=== PATIENT | male | born 1950 | race Caucasian/White ===

== ENCOUNTER 2021-02-27 02:46 | Inpatient (IN) | payer MEDICARE, OTHER ==
[2021-02-27 03:22] LABS: #Basophils 0.1 thou/uL (0.0-0.2); #Eosinphils 0.2 thou/uL (0.0-0.7); #Lymphocytes 2.8 thou/uL (1.20-3.40); #Monocytes 0.6 thou/uL (0.11-0.59); #Neutrophils 2.6 thou/uL (1.40-6.50); %Basophils 1.6 % (0.0-1.0); %Eosinophils 2.5 % (0.0-10.0); %Lymphocytes 45.1 % (21.0-51.0); %Monocytes 9.8 % (0.0-10.0); Hemoglobin 14.3 g/dL (14.0-18.0); Mean Corpuscular HGB CONC 33.6 g/dL (32.0-36.0); Mean Corpuscular Hemoglobin 31.2 pg (27.0-31.0); Mean Platelet Volume 7.9 fL (7.4-10.4); Platelet Count 190 thou/uL (130-400); RBC Distribution Width 12.9 % (11.5-14.5); Red Blood Cell (RBC) Count 4.57 mill/uL (4.70-6.10); White Blood Cell (WBC) Count 6.3 thou/uL (4.8-10.8)
[2021-02-27 03:44] LABS: ALT (SGPT) 12 U/L (8-55); AST (SGOT) 25 U/L (5-34); Albumin 3.9 g/dL (3.4-4.8); Alkaline Phosphatase 44 U/L (40-110); Anion Gap 13 mmol/L (10-20); BUN (Urea Nitrogen) 19 mg/dL (8.4-25.7); Bilirubin, Total 0.4 mg/dL (0.2-1.2); CK (CPK) 165 U/L (30-200); Calc. Creatinine Clearance 0 mL/min (70-130); Calcium 9.3 mg/dL (7.8-10.44); Carbon Dioxide 22 mmol/L (23-31); Chloride 108 mmol/L (98-107); Globulin 2.8 g/dL (2.4-3.5); Glucose 121 mg/dL (83-110); Potassium 4.3 mmol/L (3.5-5.1); Protein, Total 6.7 g/dL (5.8-8.1); Sodium 139 mmol/L (136-145)
[2021-02-27 06:51] LABS: SARS-CoV-2 NAA Rapid Test Not Detected (NotDetected)
[2021-02-27] MEDS ORDERED: Acetaminophen 325 MG TAB PO PRN (08:12)
[2021-02-27] MEDS ORDERED: Dextrose 5% in Water 1,000 ML IV PRN (08:12)
[2021-02-27] MEDS ORDERED: HumaLOG 300 UNITS/3 ML VIAL SC PRN (08:12)
[2021-02-27] MEDS ORDERED: Ondansetron ODT 4 MG TAB PO PRN (08:12)
[2021-02-27] MEDS ORDERED: Dextrose 50% Abboject 50 ML SYRINGE SLOW IVP PRN (08:12)
[2021-02-27] MEDS ORDERED: Communication Order-Pharmacy FS ONE (08:12)
[2021-02-27 08:44] LABS: Hemoglobin 13.5 g/dL (14.0-18.0); Platelet Count 164 thou/uL (130-400)
[2021-02-27] MEDS ORDERED: Enoxaparin Sodium 80 MG/0.8 ML SYRINGE SC SCH (09:00)
[2021-02-27 09:04] LABS: Troponin I 0.012 ng/mL (< 0.028)
[2021-02-27 12:59] LABS: Troponin I Less than 0.010 ng/mL (< 0.028)
[2021-02-27] MEDS ORDERED: Diltiazem 125 MG in Sodium Chloride 0.9% 100 ML IVPB SCH ×2 (17:15→17:30)
[2021-02-27] MEDS ORDERED: Diltiazem 125 MG/25 ML ONE ×2 (17:31→17:57)
[2021-02-27 17:46] VITALS: BMI 32.5
[2021-02-27] MEDS ORDERED: Digoxin 0.5 MG/2 ML AMP SLOW IVP SCH ×3 (18:30→21:00)
[2021-02-27] MEDS: Apixaban 5 MG TAB PO SCH (21:44)
[2021-02-27] MEDS ORDERED: Tamsulosin HCl 0.4 MG CAP PO SCH (23:30)
[2021-02-28 05:19] LABS: Anion Gap 11 mmol/L (10-20); BUN (Urea Nitrogen) 14 mg/dL (8.4-25.7); Calc. Creatinine Clearance 114 mL/min (70-130); Carbon Dioxide 25 mmol/L (23-31); Cardiac Risk 3.5 (Less than 4.5); Chloride 108 mmol/L (98-107); Cholesterol 114 mg/dl (< 200 Desired); Glucose 108 mg/dL (83-110); HDL Cholesterol 33 mg/dL (>60 Neg Risk); LDL Cholesterol, Calculated 49 mg/dL; Potassium 3.9 mmol/L (3.5-5.1); Sodium 140 mmol/L (136-145); Triglycerides 158 mg/dL (Less than 150)
[2021-02-28 06:34] LABS: Band 3 % (5-11); Eosinophils 1 % (0-10); Hemoglobin 13.8 g/dL (14.0-18.0); Lymphocytes 42 % (21-51); MDiff Complete? YES; Mean Corpuscular HGB CONC 32.9 g/dL (32.0-36.0); Mean Corpuscular Volume 91.3 fL (78.0-98.0); Mean Platelet Volume 8.7 fL (7.4-10.4); Monocytes 10 % (0-10); Neutrophil 44 % (42-75); Platelet Count 174 thou/uL (130-400); RBC Distribution Width 12.6 % (11.5-14.5); RBC Morphology Normal; Red Blood Cell (RBC) Count 4.59 mill/uL (4.70-6.10); White Blood Cell (WBC) Count 6.3 thou/uL (4.8-10.8)
[2021-02-28] MEDS ORDERED: Aspirin 81 mg Enteric Coated Tablet PO SCH (09:00)
[2021-02-28] MEDS: diphenhydrAMINE 50 MG CAP PO SCH ×2 (09:27→20:36)
[2021-02-28] MEDS: Apixaban 5 MG TAB PO SCH ×2 (09:28→20:35)
[2021-02-28] MEDS: Cholecalciferol 1,000 UNITS (25 MCG) TAB PO SCH (09:28)
[2021-02-28] MEDS: Tamsulosin HCl 0.4 MG CAP PO SCH ×2 (09:28→20:36)
[2021-02-28] MEDS: Carvedilol 25 MG TAB PO SCH ×2 (09:28→20:36)
[2021-02-28] MEDS: Empagliflozin 10 MG TAB PO SCH (10:05)
[2021-02-28] MEDS: Fenofibrate Nanocrystallized 145 MG TAB PO SCH (10:05)
[2021-02-28] MEDS: HumaLOG 300 UNITS/3 ML VIAL SC PRN (12:22)
[2021-02-28] MEDS ORDERED: Albuterol Sulfate 1.25 MG/3 ML NEB NEB PRN (13:52)
[2021-02-28] MEDS ORDERED: Albuterol Sulfate 2.5 mg/3 ml Neb NEB SCH (14:00)
[2021-02-28] MEDS ORDERED: Fluticasone Propionate Nasal Spray 16 gm Bottle NASAL SCH (14:00)
[2021-02-28] MEDS ORDERED: Furosemide 40 MG TAB PO SCH (16:00)
[2021-02-28] MEDS ORDERED: Furosemide 20 MG TAB PO SCH (18:00)
[2021-02-28] MEDS: Pioglitazone HCl 15 MG TAB PO SCH (20:36)
[2021-02-28] MEDS: Rosuvastatin 10 MG TAB PO SCH (20:36)
[2021-02-28] MEDS: Ramipril 5 MG CAP PO SCH (20:36)
[2021-03-01] MEDS: guaiFENesin 200 MG TAB PO PRN ×2 (03:36→20:09)
[2021-03-01 05:30] LABS: #Eosinphils 0.1 thou/uL (0.0-0.7); #Lymphocytes 2.3 thou/uL (1.20-3.40); #Monocytes 1.1 thou/uL (0.11-0.59); #Neutrophils 5.1 thou/uL (1.40-6.50); %Basophils 0.5 % (0.0-1.0); %Eosinophils 1.6 % (0.0-10.0); %Lymphocytes 26.3 % (21.0-51.0); %Neutrophils 58.5 % (42.0-75.0); Hemoglobin 14.5 g/dL (14.0-18.0); Mean Corpuscular HGB CONC 33.5 g/dL (32.0-36.0); Mean Corpuscular Hemoglobin 30.8 pg (27.0-31.0); Mean Corpuscular Volume 92.1 fL (78.0-98.0); Mean Platelet Volume 8.3 fL (7.4-10.4); Platelet Count 191 thou/uL (130-400); RBC Distribution Width 12.8 % (11.5-14.5); White Blood Cell (WBC) Count 8.7 thou/uL (4.8-10.8)
[2021-03-01 05:53] LABS: Anion Gap 14 mmol/L (10-20); BUN (Urea Nitrogen) 16 mg/dL (8.4-25.7); Calc. Creatinine Clearance 89 mL/min (70-130); Calcium 9.3 mg/dL (7.8-10.44); Carbon Dioxide 24 mmol/L (23-31); Chloride 105 mmol/L (98-107); Glucose 143 mg/dL (83-110); Potassium 3.7 mmol/L (3.5-5.1); Sodium 139 mmol/L (136-145)
[2021-03-01] MEDS ORDERED: Lidocaine 1% PF 5 ML VIAL ONE (10:59)
[2021-03-01] MEDS ORDERED: PROPOFOL 200 MG/20 ML VIAL ONE (10:59)
[2021-03-01] MEDS ORDERED: Flecainide 50 MG TAB PO SCH (12:15)
[2021-03-01] MEDS: Fluticasone Propionate Nasal Spray 16 gm Bottle NASAL SCH (12:38)
[2021-03-01] MEDS: Tamsulosin HCl 0.4 MG CAP PO SCH ×2 (12:39→20:09)
[2021-03-01] MEDS: Carvedilol 25 MG TAB PO SCH ×2 (12:39→20:08)
[2021-03-01] MEDS: Cholecalciferol 1,000 UNITS (25 MCG) TAB PO SCH (12:39)
[2021-03-01] MEDS: diphenhydrAMINE 50 MG CAP PO SCH ×2 (12:40→20:08)
[2021-03-01] MEDS: Fenofibrate Nanocrystallized 145 MG TAB PO SCH (12:40)
[2021-03-01] MEDS: Empagliflozin 10 MG TAB PO SCH (12:41)
[2021-03-01] MEDS: Apixaban 5 MG TAB PO SCH ×2 (12:53→20:08)
[2021-03-01] MEDS ORDERED: glipiZIDE 10 MG TAB PO SCH (18:15)
[2021-03-01] MEDS: Rosuvastatin 10 MG TAB PO SCH (20:08)
[2021-03-01] MEDS: Ramipril 5 MG CAP PO SCH (20:09)
[2021-03-01] MEDS: Flecainide 50 MG TAB PO SCH (20:09)
[2021-03-01] MEDS: Pioglitazone HCl 15 MG TAB PO SCH (20:09)
[2021-03-02] MEDS: guaiFENesin 200 MG TAB PO PRN (05:00)
[2021-03-02 05:13] LABS: Hemoglobin 13.8 g/dL (14.0-18.0); Platelet Count 196 thou/uL (130-400)
[2021-03-02 05:29] LABS: Anion Gap 15 mmol/L (10-20); BUN (Urea Nitrogen) 21 mg/dL (8.4-25.7); Calc. Creatinine Clearance 89 mL/min (70-130); Calcium 9.4 mg/dL (7.8-10.44); Carbon Dioxide 21 mmol/L (23-31); Chloride 107 mmol/L (98-107); Glucose 154 mg/dL (83-110); Magnesium 1.6 mg/dL (1.6-2.6); Potassium 4.1 mmol/L (3.5-5.1); Sodium 139 mmol/L (136-145)
[2021-03-02] MEDS ORDERED: glipiZIDE 10 MG TAB PO SCH (07:30)
[2021-03-02] MEDS: Carvedilol 25 MG TAB PO SCH (08:30)
[2021-03-02] MEDS: Apixaban 5 MG TAB PO SCH (08:30)
[2021-03-02] MEDS: Flecainide 50 MG TAB PO SCH (08:31)
[2021-03-02] MEDS: diphenhydrAMINE 50 MG CAP PO SCH (08:31)
[2021-03-02] MEDS: Tamsulosin HCl 0.4 MG CAP PO SCH (08:31)
[2021-03-02] MEDS: Fenofibrate Nanocrystallized 145 MG TAB PO SCH (08:31)
[2021-03-02] MEDS: Cholecalciferol 1,000 UNITS (25 MCG) TAB PO SCH (08:31)
[2021-03-02] MEDS: Empagliflozin 10 MG TAB PO SCH (08:32)
[2021-03-02] MEDS: Fluticasone Propionate Nasal Spray 16 gm Bottle NASAL SCH (08:32)
[2021-03-02] MEDS ORDERED: Carvedilol 25 MG TAB PO SCH ×2 (09:00→15:00)
[2021-03-02] MEDS ORDERED: Magnesium Sulfate 2 GM in Sodium Chloride 0.9% 100 ML IVPB SCH (10:45)
[2021-03-02] MEDS ORDERED: Magnesium 2 GM/50 ML 2 GM in Premix Bag 1 BAG IVPB SCH ×2 (10:45→11:00)
[2021-03-02] MEDS: HumaLOG 300 UNITS/3 ML VIAL SC PRN (11:31)
[2021-03-02 12:03] VITALS: BP 101/51; TEMP 97.7
== END 2021-03-02 13:06 | disposition home or self-care (01) | DRG 308 ==
LOC: ERS 02:46 → ERHOLD 05:29 → 2NO 21:53
PROVIDERS: ADMIT Internal Medicine; ATTEND Internal Medicine
PROC: 5A2204Z Restoration of Cardiac Rhythm, Single (ICD-10-PCS; principal; 2021-03-01)
PROC: B24BZZ4 Ultrasonography of Heart with Aorta, Transesophageal (ICD-10-PCS; 2021-03-01)
DX: I48.0 Paroxysmal atrial fibrillation (principal); J96.00 Acute respiratory failure, unspecified whether with hypoxia or hypercapnia; I50.33 Acute on chronic diastolic (congestive) heart failure; Z20.822 Contact with and (suspected) exposure to COVID-19; E11.9 Type 2 diabetes mellitus without complications; E66.9 Obesity, unspecified; E78.00 Pure hypercholesterolemia, unspecified; I47.2 Ventricular tachycardia; I48.92 Unspecified atrial flutter; I11.0 Hypertensive heart disease with heart failure; Z96.641 Presence of right artificial hip joint; Z79.899 Other long term (current) drug therapy; Z79.82 Long term (current) use of aspirin; Z79.84 Long term (current) use of oral hypoglycemic drugs; Z88.1 Allergy status to other antibiotic agents; Z68.32 Body mass index [BMI] 32.0-32.9, adult; Z87.442 Personal history of urinary calculi; Z87.891 Personal history of nicotine dependence; Z82.49 Family history of ischemic heart disease and other diseases of the circulatory system
CPT/HCPCS: 0240U; 36415; 36416; 71045; 80048; 80053; 80061; 82550; 83735; 83880; 84443; 84484; 85014; 85018; 85025; 85049; 85379; 93005; 93010; 93306; 93312; 94760; 96374; J1160; J1815; J2704; J3475; J3490

== ENCOUNTER 2022-04-15 12:49 | Outpatient (CLI) | payer MEDICARE ==
[2022-04-15 15:00] LABS: Hemoglobin 13.9 g/dL (13.5-17.5); Mean Corpuscular HGB CONC 32.8 g/dL (32.0-36.0); Mean Corpuscular Hemoglobin 30.3 pg (27.0-33.0); Mean Corpuscular Volume 92.4 fl (81.2-95.1); Mean Platelet Volume 12.1 fl (7.4-10.4); Platelet Count 167 10x3/uL (150-450); RBC Distribution Width 13.3 % (11.5-14.5); Red Blood Cell (RBC) Count 4.59 10x6/uL (4.32-5.72)
[2022-04-15 15:07] LABS: INR-International Normal Ratio 1.1; PTT 26.8 sec (22.0-33.0); Prothrombin Time 11.6 sec (9.5-12.1)
[2022-04-15 15:13] LABS: Anion Gap 15 mmol/L (10-20); BUN (Urea Nitrogen) 17 mg/dL (8.4-25.7); Calc. Creatinine Clearance 0 mL/min (70-130); Calcium 9.1 mg/dL (7.8-10.44); Carbon Dioxide 24 mmol/L (23-31); Chloride 110 mmol/L (98-107); Estimated GFR 85; Glucose 154 mg/dL (83-110); Potassium 4.9 mmol/L (3.5-5.1); Sodium 144 mmol/L (136-145)
== END 2022-04-15 12:50 | disposition home or self-care (01) ==
LOC: LABBT 12:49
PROVIDERS: ATTEND Internal Medicine Cardiovascular Disease
DX: Z01.812 Encounter for preprocedural laboratory examination (principal); I48.0 Paroxysmal atrial fibrillation
CPT/HCPCS: 80048; 85027; 85610; 85730

== ENCOUNTER → 2022-04-18 | Day surgery (SDC) | payer MEDICARE ==
[2022-04-14 16:08] VITALS: BMI 34.2
[~2022-04-18] MED LIST: Calcium Chloride 1 GM/10 ML Abboject SYRINGE ONE; Dexamethasone 20 MG/5 ML VIAL ONE; FENTANYL 50 MCG/ML 1 ML VIAL ONE; Heparin 10,000 UNITS/ 10 ML VIAL ONE; Heparin 25,000 units/D5W 500 ML ONE; Insulin Regular 300 UNITS/3 ML VIAL ONE; Isoproterenol 0.2 MG/1 ML AMP ONE; Ketorolac Tromethamine 30 MG/ML VIAL IVP PRN; Lidocaine 1% PF 5 ML VIAL ONE; Ondansetron PF 4 MG/2 ML Vial ONE; PHENYLEPHRINE-NS 100 MCG/ML 10 ML SYRINGE ONE; PROPOFOL 200 MG/20 ML VIAL ONE; Phenylephrine 10 MG/ML VIAL ONE; Protamine Sulfate 50 MG/5 ML VIAL ONE; Rocuronium Bromide 10 MG/ML (10ML VIAL) ONE; SUGAMMADEX SODIUM 200 MG/2 ML VIAL ONE; Sucralfate 1 GM TAB PO SCH; ePHEDrine 50 MG/ML VIAL ONE
== END | disposition home or self-care (01) ==
LOC: SDC 06:56
PROVIDERS: ATTEND Internal Medicine Cardiovascular Disease
PROC: B244ZZ3 Ultrasonography of Right Heart, Intravascular (ICD-10-PCS; principal; 2022-04-18)
PROC: 02583ZZ Destruction of Conduction Mechanism, Percutaneous Approach (ICD-10-PCS; 2022-04-18)
PROC: 02K83ZZ Map Conduction Mechanism, Percutaneous Approach (ICD-10-PCS; 2022-04-18)
PROC: 4A023FZ Measurement of Cardiac Rhythm, Percutaneous Approach (ICD-10-PCS; 2022-04-18)
PROC: 4A0234Z Measurement of Cardiac Electrical Activity, Percutaneous Approach (ICD-10-PCS; 2022-04-18)
DX: I48.19 Other persistent atrial fibrillation (principal); I48.92 Unspecified atrial flutter; I11.0 Hypertensive heart disease with heart failure; I50.32 Chronic diastolic (congestive) heart failure; E11.9 Type 2 diabetes mellitus without complications; G47.30 Sleep apnea, unspecified; Z87.891 Personal history of nicotine dependence; Z79.01 Long term (current) use of anticoagulants; Z79.84 Long term (current) use of oral hypoglycemic drugs; Z79.899 Other long term (current) drug therapy; Z88.1 Allergy status to other antibiotic agents
CPT/HCPCS: 82962; 85347 ×2; 93005; 93622; 93623; 93655; 93656; C1732 ×2; C1759; C1760; C1894 ×2; J3010; 36416; J1100; J1644; J1815; J2370; J2405; J2704; J2720; J3490

== ENCOUNTER 2022-05-04 09:10 | Inpatient (IN) | payer MEDICARE ==
[2022-05-04 12:12] VITALS: BMI 35.0
[2022-05-04 13:59] LABS: Anion Gap 12 mmol/L (10-20); BUN (Urea Nitrogen) 17 mg/dL (8.4-25.7); Calc. Creatinine Clearance 112 mL/min (70-130); Calcium 8.5 mg/dL (7.8-10.44); Carbon Dioxide 22 mmol/L (23-31); Chloride 109 mmol/L (98-107); Estimated GFR 79; Glucose 300 mg/dL (83-110); Magnesium 1.1 mg/dL (1.6-2.6); Potassium 4.4 mmol/L (3.5-5.1); Sodium 139 mmol/L (136-145)
[2022-05-04] MEDS ORDERED: Acetaminophen 325 MG TAB PO PRN (15:31)
[2022-05-04] MEDS ORDERED: HYDROcodone/Acetaminophen 5/325 mg Tablet PO PRN ×2 (15:31)
[2022-05-04] MEDS: metFORMIN 500 MG TAB PO SCH (17:01)
[2022-05-04] MEDS: glipiZIDE 10 MG TAB PO SCH (17:01)
[2022-05-04] MEDS ORDERED: Dofetilide 0.125 MG CAP PO SCH (18:00)
[2022-05-04] MEDS ORDERED: Magnesium Sulfate In Water 4 GM in Premix Bag 1 BAG IVPB SCH (19:15)
[2022-05-04] MEDS: diphenhydrAMINE 50 MG CAP PO SCH (21:53)
[2022-05-04] MEDS: Apixaban 5 MG TAB PO SCH (21:53)
[2022-05-04] MEDS: Tamsulosin HCl 0.4 MG CAP PO SCH (21:53)
[2022-05-04] MEDS: Dofetilide 0.125 MG CAP PO SCH (21:54)
[2022-05-04] MEDS: Rosuvastatin 10 MG TAB PO SCH (21:54)
[2022-05-05] MEDS ORDERED: Metoprolol Tartrate 5 MG/5 ML VIAL IVP SCH (00:15)
[2022-05-05 04:37] LABS: #Basophils 0.1 thou/uL (0.0-0.2); #Eosinphils 0.3 thou/uL (0.0-0.7); #Lymphocytes 3.3 thou/uL (1.20-3.40); #Monocytes 0.9 thou/uL (0.11-0.59); #Neutrophils 4.3 thou/uL (1.40-6.50); %Basophils 1.1 % (0.0-1.0); %Eosinophils 3.2 % (0.0-10.0); %Lymphocytes 36.8 % (21.0-51.0); %Monocytes 10.6 % (0.0-10.0); %Neutrophils 48.4 % (42.0-75.0); Hemoglobin 12.4 g/dL (14.0-18.0); Mean Corpuscular HGB CONC 33.6 g/dL (32.0-36.0); Mean Corpuscular Hemoglobin 31.4 pg (27.0-31.0); Mean Corpuscular Volume 93.6 fl (78.0-98.0); Mean Platelet Volume 9.8 fL (7.4-10.4); Platelet Count 165 10x3/uL (130-400); RBC Distribution Width 12.3 % (11.5-14.5); Red Blood Cell (RBC) Count 3.95 mill/uL (4.70-6.10); White Blood Cell (WBC) Count 8.8 10x3/uL (4.8-10.8)
[2022-05-05 05:06] LABS: Anion Gap 10 mmol/L (10-20); BUN (Urea Nitrogen) 17 mg/dL (8.4-25.7); Calc. Creatinine Clearance 116 mL/min (70-130); Calcium 8.2 mg/dL (7.8-10.44); Carbon Dioxide 23 mmol/L (23-31); Chloride 109 mmol/L (98-107); Estimated GFR 82; Glucose 200 mg/dL (83-110); Magnesium 1.6 mg/dL (1.6-2.6); Potassium 4.2 mmol/L (3.5-5.1); Sodium 138 mmol/L (136-145)
[2022-05-05] MEDS: Cholecalciferol 1,000 UNITS (25 MCG) TAB PO SCH (08:14)
[2022-05-05] MEDS: Multivitamin W/ Minerals 1 TAB PO SCH (08:14)
[2022-05-05] MEDS: Apixaban 5 MG TAB PO SCH ×2 (08:15→21:17)
[2022-05-05] MEDS: diphenhydrAMINE 50 MG CAP PO SCH ×2 (08:15→21:16)
[2022-05-05] MEDS: Tamsulosin HCl 0.4 MG CAP PO SCH ×2 (08:15→21:17)
[2022-05-05] MEDS: metFORMIN 500 MG TAB PO SCH ×2 (08:15→17:01)
[2022-05-05] MEDS: glipiZIDE 10 MG TAB PO SCH ×4 (08:15→21:16)
[2022-05-05] MEDS ORDERED: FLU VACC QS2022-23(65YR UP)/PF 240 MCG/0.7 ML SYRINGE IM ONE (09:00)
[2022-05-05] MEDS: Dofetilide 0.125 MG CAP PO SCH ×2 (09:35→21:21)
[2022-05-05] MEDS: Valsartan 80 MG TAB PO SCH (09:44)
[2022-05-05] MEDS ORDERED: Magnesium Sulfate In Water 4 GM in Premix Bag 1 BAG IVPB SCH (11:45)
[2022-05-05] MEDS: Rosuvastatin 10 MG TAB PO SCH (21:17)
[2022-05-06 04:27] LABS: #Basophils 0.1 thou/uL (0.0-0.2); #Eosinphils 0.3 thou/uL (0.0-0.7); #Lymphocytes 2.5 thou/uL (1.20-3.40); #Monocytes 0.8 thou/uL (0.11-0.59); #Neutrophils 3.7 thou/uL (1.40-6.50); %Basophils 1.2 % (0.0-1.0); %Eosinophils 4.5 % (0.0-10.0); %Lymphocytes 33.4 % (21.0-51.0); %Monocytes 10.6 % (0.0-10.0); %Neutrophils 50.2 % (42.0-75.0); Hemoglobin 12.2 g/dL (14.0-18.0); Mean Corpuscular HGB CONC 35.4 g/dL (32.0-36.0); Mean Corpuscular Hemoglobin 33.1 pg (27.0-31.0); Mean Corpuscular Volume 93.6 fl (78.0-98.0); Mean Platelet Volume 9.5 fL (7.4-10.4); Platelet Count 150 10x3/uL (130-400); RBC Distribution Width 12.1 % (11.5-14.5); Red Blood Cell (RBC) Count 3.69 mill/uL (4.70-6.10); White Blood Cell (WBC) Count 7.4 10x3/uL (4.8-10.8)
[2022-05-06 04:43] LABS: Anion Gap 11 mmol/L (10-20); BUN (Urea Nitrogen) 17 mg/dL (8.4-25.7); Calc. Creatinine Clearance 140 mL/min (70-130); Calcium 8.2 mg/dL (7.8-10.44); Carbon Dioxide 21 mmol/L (23-31); Chloride 109 mmol/L (98-107); Estimated GFR 93; Glucose 144 mg/dL (83-110); Potassium 3.8 mmol/L (3.5-5.1); Sodium 137 mmol/L (136-145)
[2022-05-06] MEDS: glipiZIDE 10 MG TAB PO SCH ×2 (10:10→12:28)
[2022-05-06] MEDS: metFORMIN 500 MG TAB PO SCH (10:10)
[2022-05-06] MEDS: Apixaban 5 MG TAB PO SCH (10:11)
[2022-05-06] MEDS: Cholecalciferol 1,000 UNITS (25 MCG) TAB PO SCH (10:11)
[2022-05-06] MEDS: diphenhydrAMINE 50 MG CAP PO SCH (10:12)
[2022-05-06] MEDS: Dofetilide 0.125 MG CAP PO SCH (10:12)
[2022-05-06] MEDS: Valsartan 80 MG TAB PO SCH (10:13)
[2022-05-06] MEDS: Tamsulosin HCl 0.4 MG CAP PO SCH (10:13)
[2022-05-06] MEDS: Multivitamin W/ Minerals 1 TAB PO SCH (10:13)
[2022-05-06 17:59] VITALS: BP 135/68; TEMP 98.5
[2022-05-06] MEDS ORDERED: Carvedilol 25 MG TAB PO SCH (21:00)
== END 2022-05-06 16:30 | disposition home or self-care (01) | DRG 309 ==
LOC: 2NO 11:25
PROVIDERS: ADMIT Internal Medicine; ATTEND Internal Medicine
DX: I48.0 Paroxysmal atrial fibrillation (principal); I50.32 Chronic diastolic (congestive) heart failure; E11.9 Type 2 diabetes mellitus without complications; G47.33 Obstructive sleep apnea (adult) (pediatric); Z20.822 Contact with and (suspected) exposure to COVID-19; I47.29 Other ventricular tachycardia; D72.821 Monocytosis (symptomatic); Z79.84 Long term (current) use of oral hypoglycemic drugs; Z79.01 Long term (current) use of anticoagulants; Z79.899 Other long term (current) drug therapy
CPT/HCPCS: 36415; 36416; 80048; 83735; 85025; 93005; 93010; J3475; J8499

== ENCOUNTER 2022-10-19 17:30 | Outpatient (CLI) | payer MEDICARE | END 2022-10-19 17:31 | disposition home or self-care (01) | LOC: SLEEPLAB 17:30 | PROVIDERS: ATTEND Internal Medicine | DX: G47.33 Obstructive sleep apnea (adult) (pediatric) (principal); E11.9 Type 2 diabetes mellitus without complications; I10 Essential (primary) hypertension; R06.83 Snoring | CPT/HCPCS: 95800 ==

== ENCOUNTER 2022-12-15 17:00 | Outpatient (CLI) | payer MEDICARE | END 2022-12-15 17:01 | disposition home or self-care (01) | LOC: SLEEPLAB 17:00 | PROVIDERS: ATTEND Internal Medicine | DX: G47.33 Obstructive sleep apnea (adult) (pediatric) (principal); E11.9 Type 2 diabetes mellitus without complications; R06.83 Snoring; I10 Essential (primary) hypertension; G47.10 Hypersomnia, unspecified; E66.9 Obesity, unspecified; I48.91 Unspecified atrial fibrillation; Z68.32 Body mass index [BMI] 32.0-32.9, adult | CPT/HCPCS: 95811 ==

== ENCOUNTER → 2023-02-01 | Day surgery (SDC) | payer MEDICARE ==
[2023-01-31 14:08] VITALS: BMI 29.7
[~2023-02-01] MED LIST changes: -Calcium Chloride 1 GM/10 ML Abboject SYRINGE ONE; -FENTANYL 50 MCG/ML 1 ML VIAL ONE; +HYDROmorphone 2 MG/ML VIAL SLOW IVP PRN; -Insulin Regular 300 UNITS/3 ML VIAL ONE; -Ketorolac Tromethamine 30 MG/ML VIAL IVP PRN; -Lidocaine 1% PF 5 ML VIAL ONE; +Midazolam HCl 2 mg/2 ml Vial ONE; +Ondansetron HCl/PF 4 MG/2 ML Vial IVP PRN; -PROPOFOL 200 MG/20 ML VIAL ONE; -Phenylephrine 10 MG/ML VIAL ONE; +Phenylephrine 40 MG/NS 250 ML 250 ML ONE; +Promethazine HCl 25 MG/ML VIAL IM PRN; -Sucralfate 1 GM TAB PO SCH; +Vasopressin 20 UNITS/ML VIAL ONE; -ePHEDrine 50 MG/ML VIAL ONE; +ePHEDrine Sulfate 50 MG/10 ML VIAL ONE; +fentaNYL 50 mcg/mL 1 mL Vial ONE
== END | disposition home or self-care (01) ==
LOC: SDC 05:51
PROVIDERS: ATTEND Internal Medicine Cardiovascular Disease
PROC: 02583ZZ Destruction of Conduction Mechanism, Percutaneous Approach (ICD-10-PCS; principal; 2023-02-01)
DX: I48.19 Other persistent atrial fibrillation (principal); I11.0 Hypertensive heart disease with heart failure; I50.30 Unspecified diastolic (congestive) heart failure; E11.9 Type 2 diabetes mellitus without complications; F10.90 Alcohol use, unspecified, uncomplicated; Z88.8 Allergy status to other drugs, medicaments and biological substances; Z88.1 Allergy status to other antibiotic agents; Z87.891 Personal history of nicotine dependence; Z79.82 Long term (current) use of aspirin; Z79.84 Long term (current) use of oral hypoglycemic drugs; Z79.899 Other long term (current) drug therapy
CPT/HCPCS: 85347 ×2; 93623; 93655; 93656; 93657; C1732 ×3; C1759 ×2; C1760; C1884; C1893 ×2; C1894; J3010; J1100; J1644; J2250; J2405; J2720

== ENCOUNTER 2023-12-18 10:15 | Outpatient (CLI) | payer MEDICARE | END 2023-12-18 10:16 | disposition home or self-care (01) | LOC: BICRAD 10:15 | PROVIDERS: ATTEND Urology | DX: N20.0 Calculus of kidney (principal); N40.1 Benign prostatic hyperplasia with lower urinary tract symptoms; R35.1 Nocturia; K80.20 Calculus of gallbladder without cholecystitis without obstruction | CPT/HCPCS: 36415; 74018; 80048; 81001; 83735; 87086 ==

== ENCOUNTER 2023-12-21 06:14 | Day surgery (SDC) | payer MEDICARE ==
[2023-12-21] MEDS ORDERED: PROPOFOL 40 ML ONE (06:43)
[2023-12-21] MEDS ORDERED: PHENYLEPHRINE-NS 100 MCG/ML 10 ML SYRINGE ONE (06:44)
[2023-12-21 07:54] LABS: #Basophils 0.08 10x3/uL (0.0-0.2); %Eosinophils 2.3 % (0.0-10.0); %Lymphocytes 33.9 % (21.0-51.0); %Monocytes 12.4 % (0.0-10.0); %Neutrophils 49.7 % (42.0-75.0); Hematocrit 45.8 % (42.0-52.0); Hemoglobin 15.4 g/dL (14.0-18.0); Mean Corpuscular HGB CONC 33.6 g/dL (32.0-36.0); Mean Corpuscular Hemoglobin 30.3 pg (27.0-31.0); Mean Platelet Volume 11.5 fL (7.4-10.4); Platelet Count 167 10x3/uL (130-400); RBC Distribution Width 13.7 % (11.5-14.5); Red Blood Cell (RBC) Count 5.09 mill/uL (4.70-6.10)
[2023-12-21 08:06] LABS: Anion Gap 15 mmol/L (10-20); BUN (Urea Nitrogen) 34 mg/dL (8.4-25.7); Calc. Creatinine Clearance 0 mL/min (70-130); Carbon Dioxide 26 mmol/L (23-31); Chloride 101 mmol/L (98-107); Estimated GFR 55; Glucose 189 mg/dL (83-110); Potassium 4.1 mmol/L (3.5-5.1); Sodium 138 mmol/L (136-145)
[2023-12-21] MEDS ORDERED: Lidocaine 1% PF 5 ML VIAL ONE (08:30)
== END 2023-12-21 09:40 | disposition home or self-care (01) ==
LOC: SDC 06:14
PROVIDERS: ATTEND Internal Medicine Cardiovascular Disease
PROC: 5A2204Z Restoration of Cardiac Rhythm, Single (ICD-10-PCS; principal; 2023-12-21)
PROC: B246ZZ4 Ultrasonography of Right and Left Heart, Transesophageal (ICD-10-PCS; 2023-12-21)
DX: I48.0 Paroxysmal atrial fibrillation (principal); I48.92 Unspecified atrial flutter; I42.9 Cardiomyopathy, unspecified; I08.1 Rheumatic disorders of both mitral and tricuspid valves; I11.0 Hypertensive heart disease with heart failure; I50.9 Heart failure, unspecified; E78.1 Pure hyperglyceridemia; G47.30 Sleep apnea, unspecified; E08.8 Diabetes mellitus due to underlying condition with unspecified complications; E78.5 Hyperlipidemia, unspecified; E66.9 Obesity, unspecified; Z96.649 Presence of unspecified artificial hip joint; Z98.890 Other specified postprocedural states; Z79.899 Other long term (current) drug therapy; Z79.84 Long term (current) use of oral hypoglycemic drugs; Z79.82 Long term (current) use of aspirin; Z79.01 Long term (current) use of anticoagulants; Z88.1 Allergy status to other antibiotic agents; Z88.8 Allergy status to other drugs, medicaments and biological substances; Z87.891 Personal history of nicotine dependence
CPT/HCPCS: 80048; 85025; 92960; 93005; 93312; J2704; 93010